=== PATIENT | female | born 1980 | race Caucasian/White ===

== ENCOUNTER 2018-12-02 12:40 | Emergency (ER) | payer MEDICAID ==
--- NOTE | 2018-12-02 13:47 | ED Physician Chart ---
ED Chief Complaint/HPI - Patient Information Date Seen:: 12/02/18 Time Seen:: 13:43 Chief Complaint:: Anemia History of Present Illness:: 38 yo female had dizziness, nausea for 2 months. She went to clinic 2 days ago and had blood drawn which showed Hb 6.2. Pt was recommended by her physician to come to ER. Pt denied heavy menstrual periods or blood in stool. Pt denied any abdominal pain. Allergies:: Allergies Allergy/AdvReac Type Severity Reaction Status Date / Time No Known Allergies Allergy Verified 12/02/18 12:53 Vitals:: Vital Signs - 8 hr 12/02/18 12:53 Temp 97.9 F HR 65 RR 18 BP 93/37 O2 Sat % 100 ED Review of Systems - Review of Systems General/Constitutional: No fever, No chills Skin: No rash Head: Headache, Light headed Eyes: No pain ENT: Earache Neck: No neck pain Cardio Vascular: No chest pain Pulmonary: No SOB GI: Nausea, No vomiting, No diarrhea G/U: No dysuria Musculoskeletal: No bone or joint pain Neurological: No focal symptoms ED Past Medical History - Past Medical History Past Medical History: Other (, anemia during gestations 8 years ) Social History: Non Smoker, No Alcohol, No Drug Use Surgical History: (x 3) Family Medical History - Family Member Mother History Unknown: Yes ED Physical Exam - Physical Examination General/Constitutional: Awake, Alert Head: Atraumatic Eyes: PERRL, EOMI Other Eyes comments:: pale conjunctiva Other Skin comments:: Pale skin ENMT: Nasal exam nl Neck: No nuchal rigidity Respiratory: Clear to Auscultation Cardio Vascular: RRR, No murmur, gallop, rubs, NL S1 S2 GI: No tenderness/rebounding/guarding Extremities: normal strength in all extremities Neuro/Psych: Normal motor strength, No focal deficits ED Labs/Radiology/EKG Results - Lab Results Results: Laboratory Last Values WBC 5.3 Th/cmm (4.8-10.8) 12/02/18 14:10 RBC 4.22 Mil/cmm (3.80-5.10) 12/02/18 14:10 Hgb 6.1 gm/dL (12-16) L* 12/02/18 14:10 Hct 21.2 % (41.0-60) L 12/02/18 14:10 MCV 50.3 fl (81-100) L 12/02/18 14:10 MCH 14.5 pg (27.0-31.0) L 12/02/18 14:10 MCHC Differential 28.9 pg (28.0-36.0) 12/02/18 14:10 RDW 22.9 % (11.5-20.0) H 12/02/18 14:10 Plt Count 390 Th/cmm (150-400) 12/02/18 14:10 MPV 9.1 fl 12/02/18 14:10 Add Manual Diff YES 12/02/18 14:10 Neutrophils (Manual) 58 % (40-80) 12/02/18 14:10 Lymphocytes 37 % (20-50) 12/02/18 14:10 Monocytes 4 % (2-10) 12/02/18 14:10 Eosinophils 1 % (0-5) 12/02/18 14:10 Hypochromia 1+ 12/02/18 14:10 Anisocytosis 1+ 12/02/18 14:10 Microcytosis 3+ 12/02/18 14:10 RBC Morph Micro Appear ABNORMAL (NORMAL) 12/02/18 14:10 PT 9.7 SECONDS (9.5-11.5) 12/02/18 14:10 INR 0.93 (0.5-1.4) 12/02/18 14:10 PTT (Actin FS) 23.2 SECONDS (26.0-38.0) L 12/02/18 14:10 Sodium 138 mEq/L (136-145) 12/02/18 14:10 Potassium 3.6 mEq/L (3.5-5.1) 12/02/18 14:10 Chloride 107 mEq/L (98-107) 12/02/18 14:10 Carbon Dioxide 21.7 mEq/L (21.0-31.0) 12/02/18 14:10 Anion Gap 12.9 (7.0-16.0) 12/02/18 14:10 BUN 8 mg/dL (7-25) 12/02/18 14:10 Creatinine 0.5 mg/dL (0.6-1.2) L 12/02/18 14:10 Est GFR ( Amer) > 60.0 ml/min (>90) 12/02/18 14:10 Est GFR (Non-Af Amer) > 60.0 ml/min 12/02/18 14:10 BUN/Creatinine Ratio 16.0 12/02/18 14:10 Glucose 92 mg/dL (70-105) 12/02/18 14:10 Calcium 8.8 mg/dL (8.6-10.3) 12/02/18 14:10 Total Bilirubin 0.5 mg/dL (0.3-1.0) 12/02/18 14:10 AST 22 U/L (13-39) 12/02/18 14:10 ALT 29 U/L (7-52) 12/02/18 14:10 Alkaline Phosphatase 96 U/L (34-104) 12/02/18 14:10 Total Protein 7.0 gm/dL (6.0-8.3) 12/02/18 14:10 Albumin 4.5 gm/dL (3.7-5.3) 12/02/18 14:10 Globulin 2.5 gm/dL 12/02/18 14:10 Albumin/Globulin Ratio 1.8 (1.0-1.8) 12/02/18 14:10 TSH 2.00 uIU/ml (0.34-5.60) 12/02/18 14:10 - EKG Interpretations EKG Time:: 14:04 Rate & Rhythm: 66 bpm, sinus rhythm Intervals: Borderline prolonged QT interval ED Assessment - Assessment General Assessment: Severe anemia, microcytic, hypochromic Assessment/Comments:: CBC, CMP, PT/PTT PRBC 2 units transfusion ED Septic Shock - . Is Septic Shock (SBP<90, OR Lactate>4 mmol\L) present?: No - <6hrs of presentation: Vital Signs: Vital Signs - 8 hr 12/02/18 12:53 Temp 97.9 F HR 65 RR 18 BP 93/37 O2 Sat % 100 ED Reassessment (Disposition) - Reassessment Reassessment:: Patient refused blood transfusion and left AMA. Reassessment Condition:: Unchanged - Patient Disposition Discharge/Transfer:: Against Medical Advice
[2018-12-02 14:23] LABS: WHITE BLOOD COUNT 5.3 Th/cmm (4.8-10.8)
[2018-12-02 14:25] LABS: HEMATOCRIT 21.2 % (41.0-60); MEAN CORPUSCULAR HEMOGLOBIN 14.5 pg (27.0-31.0); MEAN CORPUSCULAR HGB CONC 28.9 pg (28.0-36.0); MEAN PLATELET VOLUME 9.1 fl; PLATELET COUNT 390 Th/cmm (150-400); RED BLOOD COUNT 4.22 Mil/cmm (3.80-5.10); RED CELL DISTRIBUTION WIDTH 22.9 % (11.5-20.0)
[2018-12-02 14:30] LABS: INR 0.93 (0.5-1.4); PROTHROMBIN TIME (TEST) 9.7 SECONDS (9.5-11.5)
[2018-12-02 14:32] LABS: HEMOGLOBIN 6.1 gm/dL (12-16)
[2018-12-02 14:35] LABS: ALB/GLOB RATIO 1.8 (1.0-1.8); ALBUMIN 4.5 gm/dL (3.7-5.3); ALKALINE PHOSPHATASE 96 U/L (34-104); ANION GAP 12.9 (7.0-16.0); BILIRUBIN,TOTAL 0.5 mg/dL (0.3-1.0); BUN - UREA NITROGEN 8 mg/dL (7-25); CALCIUM SERUM 8.8 mg/dL (8.6-10.3); CARBON DIOXIDE 21.7 mEq/L (21.0-31.0); CHLORIDE 107 mEq/L (98-107); CREATININE - SERUM 0.5 mg/dL (0.6-1.2); GFR AFRICAN-AMERICAN > 60.0 ml/min (>90); GFR NON AFRICAN-AMERICAN > 60.0 ml/min; GLUCOSE 92 mg/dL (70-105); POTASSIUM SERUM 3.6 mEq/L (3.5-5.1); SGOT 22 U/L (13-39); SGPT/ALT 29 U/L (7-52); SODIUM SERUM 138 mEq/L (136-145)
[2018-12-02 14:42] LABS: EOSINOPHIL 1 % (0-5); LYMPHOCYTE 37 % (20-50); MONOCYTE 4 % (2-10); NEUTROPHILS 58 % (40-80)
[2018-12-02 14:43] LABS: ANISOCYTOSIS 1+; HYPOCHROMIA 1+
[2018-12-02 15:14] LABS: MEAN CELL VOLUME 50.3 fl (81-100)
[2018-12-04 08:07] LABS: FERRITIN 2 ng/mL (15-150); IRON LC 7 ug/dL (27-159); TIBC (LC) 500 ug/dL (250-450); UIBC 493 ug/dL (131-425)
== END 2018-12-02 15:35 | disposition left against medical advice (07) ==
LOC: ER 12:40
DX: D50.9 Iron deficiency anemia, unspecified (principal); R42 Dizziness and giddiness
CPT/HCPCS: 36415-UA; 80053-TC; 82607-90; 82728-90; 82746-90; 83540-90; 83550-90; 84443-TC; 85007-TC; 85025-TC; 85610-TC; 86922-TC; 93005